=== PATIENT | male | born 2000 | race Caucasian/White ===

== ENCOUNTER 2020-09-09 17:10 | Emergency (ER) | payer BC, MEDICAID, SELFPAY ==
[2020-09-09 17:12] VITALS: BP 149/92; PULSE 115; RESP 16; TEMP 35.9; O2SAT 98; BMI 31.9
[2020-09-09 17:22] VITALS: BP 149/92; PULSE 113; RESP 16; TEMP 35.9; O2SAT 98
--- NOTE | 2020-09-09 17:37 | ED.DCSUM_ITS ---
- ER Visit Summary Date of Service: 09/09/20 Chief Complaint: Dysuria and frequency History of Present Illness: The patient is a 19 M who goes to the [facility] for his primary care physician. He does not know the specific name. He reports that he had cystoscopy 4 days ago for frequent UTIs by Dr. Villalobos. States that since that time has had dysuria and frequency. He denies any possibility of STD exposure. He denies any fever, chills, or back pain. Does report it has been nauseated at times. He denies any vomiting. No abdominal pain. Physical Examination: Vitals: Stable. Afebrile. General: Well-nourished and well-developed. Head: Normocephalic atraumatic. Neck: Supple, no lymphadenopathy. No JVD. Nontender. Cardiovascular: Regular rate and rhythm. No murmurs. Respiratory: No respiratory distress. Clear to auscultation bilaterally. Abdominal: Soft, nontender, nondistended, normal bowel sounds. No guarding, rebound, or peritoneal signs. Back: Nontender. Extremities: Nontender, no edema. Skin: Normal color, no rash. Neurologic: Alert and oriented ?3. Cranial nerves II through XII are intact. Normal strength and sensation. Psych: Normal affect. Test Results: UA shows leukocytes, nitrites, blood, greater than 100 white blood cells, 25-50 red blood cells, and 1+ bacteria. This was sent for culture. CBC shows a hemoglobin of 16.7. Chem-7 shows a chloride of 109. Lactic acid is 0.9. Clinical Impression(s) from Imaging Studies Abdomen/Pelvis CT 09/09/20 18:21 IMPRESSION: 1. No evidence of renal, ureteral or urinary bladder abnormality. 2. Estimated prostatectomy with penile implant. 3. Question bilateral orchiectomy. 4. Large amount of colonic feces suggesting constipation. Electronically Signed: Andrae DO Jose Armando at 18:51 EST Tel [phone], Service support , Emergency Department Course and Treatment: After giving a urine sample the patient was given a dose of Azo p.o. He is resting more comfortably. I had a prolonged discussion with the patient about these findings. He reports that he has recurrent UTIs and that it has not responded to any antibiotic. He also has a history of C. difficile. I looked on [facility] and there are no records, Including no urine cultures. Patient reports that he has never had a CT to look for a struvite stone. Patient is allergic to Keflex. He reports that he is recently taken Bactrim with no resolution. He was given a dose of Cipro IV. I had a prolonged discussion with the patient and he reports that he is not sexually active. He denies insertive anal intercourse. Treatment Plan: Patient will be discharged with Pyridium and Cipro. Instructed to follow-up with his urologist as soon as possible. Return to the emergency department for any worsening symptoms. Disposition: To home in improved and stable condition. Impression: 1. UTI. 2. 4 days status post cystoscopy. 3. History of penile implant. This note was generated with [employer] dictation software. It may contain incorrect words, spelling, and punctuation that were not noted in review of the chart prior to signing ED Disposition - Plan for ED Patient: Instructions: ED Bladder Infection, Male (Adult) Prescriptions: Ciprofloxacin [Cipro] 500 mg PO BID #14 tablet Phenazopyridine HCl [Pyridium] 200 mg PO BID PRN PRN #10 tablet PRN Reason: Pain Additional Instructions: Follow up with Dr. Villalobos as soon as possible.
[2020-09-09 17:39] LABS: Mucous, Urine 0 SEEN /hpf (<or=2+)
[2020-09-09 17:41] LABS: Color, Urine Yellow (Yellow); Glucose, Dipstick Normal (Normal); Ketone-Dipstick Negative (Negative); Leukocyte Esterase-Dipstick 500 /ul (Negative); Nitrite-Dipstick Positive (Negative); Occult Blood-Urine 250 /ul (Negative); Protein-Dipstick 100 mg/dl (Negative); Urine Bilirubin Dipstick Negative (Negative); Urine Clarity Cloudy (Clear); Urine Urobilinogen Normal (Normal)
[2020-09-09] MEDS: Phenazopyridine 95 MG Tablet 190 MG PO (17:44)
[2020-09-09 17:46] LABS: White Blood Cells >100 SEEN /hpf (0-5)
[2020-09-09 17:47] LABS: Red Blood Cells-Urine 25-50 SEEN /hpf (0-5)
[2020-09-09 17:48] LABS: Bacteria 1+ /hpf (None Seen); Squamous Epithelial Cells - UA 0-5 SEEN /hpf (0-5)
[2020-09-09] MEDS: 0.9% Normal Saline 1,000 ML 1000 ML IV (18:09)
[2020-09-09] MEDS: Ciprofloxacin 400 MG/200 ML BAG 200 MG IV (18:10)
[2020-09-09 18:12] LABS: Absolute Lymphocyte Count 1.88 X10^3/uL (0.83-4.51); Absolute Neutrophil Count 5.8 X10^3/uL (2.0-7.7); Basophil# 0.04 X10^3/uL; Basophil% 0.5 % (0-1); Eosinophils% 1.2 % (0-5); Hemoglobin 16.7 g/dL (13.0-16.5); Lymphocyte # 1.88 X10^3/ul (4.0); Lymphocyte % 22.4 % (19-41); Mean Corp Hgb Conc 35.5 g/dL (32-36); Mean Corpuscular Hgb 29.8 pg (27.0-32.0); Mean Corpuscular Volume 83.9 fL (80-94); Mean Platelet Vol. 9.8 fl (6.2-12.0); Monocyte# 0.58 X10^3/uL; Monocyte% 6.9 % (0-10); NRBC Flagged by Analyzer 0 % (0-5); Neutrophil # 5.77 X10^3/uL (2.7-7.7); Neutrophil % 68.9 % (47-70); Platelet Count 234 K/mm3 (150-450); RBC Distribution Width CV 12.8 % (11.6-14.6); White Blood Count 8.4 K/mm3 (4.4-11.0)
--- NOTE | 2020-09-09 18:21 | CT_ITS ---
STUDY: CT ABDOMEN AND PELVIS WITHOUT CONTRAST REASON FOR EXAM: Male, 19 years old. Burning with urination. Cystoscopy 4 days ago due to recurrent UTI. Patient refuses to get further medical information. RADIATION DOSAGE (If Supplied By Facility): CTDIvol = ( 11.72 ) mGy, DLP = ( 690.98 ) mGycm TECHNIQUE: Transaxial images were obtained from the dome of the diaphragm to the symphysis pubis without oral contrast, and without intravenous contrast. Sagittal and coronal images were reconstructed. Individualized dose optimization techniques were used for this CT. COMPARISON: None. FINDINGS: The visualized lung bases are unremarkable. The visualized portions of the heart are within normal limits. Normal liver. Normal gallbladder and extrahepatic biliary system. Normal spleen. Normal pancreas. Normal bilateral adrenal glands. Normal right kidney. Normal left kidney. Normal visualized ureter. Normal visualized stomach. Normal small intestine. Large amount of feces in the proximal colon. The appendix is visualized and appears normal. Normal abdominal aorta. Normal inferior vena cava. Normal retroperitoneum. Normal urinary bladder. The prostate is nodular clearly visualized. There is a reservoir for penile implant in the right groin adjacent to the cecum. There are multiple surgical clips in the right groin. There are 2 rounded foreign bodies in the scrotal sac thought to be the pump for the penile implant. Normal testicles are not visualized.. Normal osseous structures. CT/Abdomen/Pelvis without Cont IMPRESSION: 1. No evidence of renal, ureteral or urinary bladder abnormality. 2. Estimated prostatectomy with penile implant. 3. Question bilateral orchiectomy. 4. Large amount of colonic feces suggesting constipation. Electronically Signed: Andrae Suárez DO at 18:51 EST Tel [phone], Service support ,
[2020-09-09 18:27] VITALS: BP 122/80; PULSE 75; RESP 16; TEMP 36.6; O2SAT 95
[2020-09-09 18:36] LABS: Anion Gap 2 (5-15); BUN 8 mg/dL (7-18); BUN/Creat Ratio 6.9 RATIO (10-20); Calcium,Total 8.8 mg/dL (8.5-10.1); Chloride 109 mmol/L (98-107); Creatinine, Serum 1.16 mg/dL (0.70-1.30); EST Glomerular Filtration Rate 84 mL/min (>60); Est Glom Filt Rate - Afr Amer 102 mL/min (>60); Estimated Creatinine Clearance 84.35 ml/min; Glucose 85 mg/dL (74-106); Potassium 3.9 mmol/L (3.5-5.1); Sodium Level 140 mmol/L (136-145)
[2020-09-09 18:40] LABS: Lactic Acid 0.9 mmol/L (0.4-1.9)
[2020-09-09 19:27] VITALS: BP 116/72; PULSE 69; RESP 16; O2SAT 96
== END 2020-09-09 19:30 | disposition home or self-care (01) ==
LOC: ED 17:52
PROVIDERS: Emergency Provider Emergency Medicine
DX: N39.0 Urinary tract infection, site not specified (principal); Z87.440 Personal history of urinary (tract) infections; Z88.1 Allergy status to other antibiotic agents
CPT/HCPCS: 74176; 80048; 81001; 83605; 85025; 87086; 87088; 87186; 96365; 99283; J7030; J7050; A4216; J0744